=== PATIENT | female | born 1935 | race Caucasian/White ===

== ENCOUNTER 2025-02-01 10:09 | Observation (INO) ==
--- NOTE | 2025-02-01 10:24 | Emergency Department Note ---
HPI - General Adult General Chief complaint: General Complaint Stated complaint: AMS Time Seen by Provider: 02/01/25 10:12 Source: family and caregiver Mode of arrival: walk-in Limitations: no limitations History of Present Illness HPI narrative: This is a 89 year old female patient that presents to the ER from the long-term with c/o per son patient has been confused. Per son patient has intermittent confusion normally and hallucinations but its worse today. Per son patient has a hx of UTI's. Patient denies any chest pain, SOB, back pain, abdominal pain, cough or congestion Treatments prior to arrival: Reports none Related Data Home Medications Medication Instructions Recorded Confirmed atorvastatin 40 mg tablet mg 03/11/24 glipizide 5 mg tablet mg 03/11/24 levothyroxine 25 mcg tablet mcg 03/11/24 lisinopril 10 mg tablet mg 03/11/24 metformin 500 mg tablet mg 03/11/24 metoprolol tartrate 50 mg tablet mg 03/11/24 olanzapine 2.5 mg tablet mg 03/11/24 Allergies Allergy/AdvReac Type Severity Reaction Status Date / Time iodine Allergy Verified 02/01/25 10:28 Penicillins Allergy Verified 02/01/25 10:28 SEAFOOD Allergy Uncoded 02/01/25 10:28 Review of Systems Status of ROS 10 or more systems reviewed and unremark able except as noted in history and below Constitutional Denies: fever, chills, change in weight, fatigue, malaise or night sweats Eyes Denies: change in vision, blurry vision, blind spots, light sensitivity or eye discomfort Ears, nose, mouth, and throat Denies: throat pain, neck pain, throat swelling, difficulty swallowing, hoarseness or mouth pain Cardiovascular Denies: chest pain, palpitations, edema, swelling of feet/ankles, lightheadedness or shortness of breath with exertion Respiratory Denies: shortness of breath, cough, wheezing, stridor, pain on inspiration or change in phlegm color Gastrointestinal Denies: abdominal pain, nausea, vomiting, coffee grounds in vomit, heartburn, diarrhea or constipation Genitourinary Denies: painful urination, urinary frequency, urinary urgency, urinary incontinence, blood in urine or difficulty voiding Musculoskeletal Denies: back pain, neck pain, extremity pain, extremity swelling, joint pain or limited range of motion Integumentary/Breast Denies: rash, itching, redness, skin pain, skin tenderness, skin swelling or sores Neurological Reports: confusion; Denies: headache, numbness in extremities, weakness in extremities, lack of coordination, dizziness, behavioral changes, slurred speech, difficulty communicating thoughts, seizure-like activity or involuntary movements Psychiatric Denies: anxiety, mood swings, panic attacks, change in sleep pattern, hopelessness or loss of interest Endocrine Denies: excessive urination, excessive thirst, fatigue, cold intolerance or excessive sweating Hematologic/Lymphatic Denies: easy bruising, easy bleeding or enlarged lymph nodes Allergic/Immunologic Denies: hives, throat swelling, tongue swelling, facial swelling or wheezing [facility] Medical History Primary osteoarthritis, unspecified site Cognitive communication deficit Acute upper respiratory infection, unspecified Anxiety disorder, unspecified Atherosclerotic heart disease of [place] coronary artery without angina pectoris Social History Smoking status: never smoker Little interest or pleasure in doing things: not at all Feeling down, depressed, or hopeless: not at all Exam Constitutional: normal general appearance and no apparent distress Vital Signs - 24 hr 02/01/25 10:12 Temperature 97.2 F L Pulse Rate 67 Respiratory Rate 17 Blood Pressure 161/65 Pulse Oximetry 95 Oxygen Delivery Me thod Room Air HENMT: normocephalic, head/scalp atraumatic, hearing grossly normal bilaterally, external ears normal, EACs normal, nasal mucous membranes normal, external nose normal, oral mucous membranes normal and oropharynx normal Eyes: PERRL, EOMs intact bilaterally, conjunctivae normal and no scleral icterus Neck/C-Spine: visual inspection normal and trachea midline Lymph: no lymphadenopathy noted Chest: inspection of chest normal Respiratory: breath sounds equal bilaterally, normal respiratory effort, clear to auscultation bilaterally, no wheezes, no rales, no retractions, no use of accessory muscles and chest percussion normal Cardiovascular: normal heart rate noted, regular rhythm noted, no gallop, no rub, no murmur, no JVD, no clicks, peripheral pulses 2+ throughout, no bruits noted and no additional abnormal heart sounds Gastrointestinal: abdomen normal to inspection, abdomen soft to palpation, nontender to palpation, nontender to percussion, nondistended, normoactive bowel sounds, no hepatosplenomegaly, no masses, no pulsatile mass, no ascites and no hernia Genitourinary: no CVA tenderness Back/Pelvis: spine normal to inspection Extremities: normal to inspection, normal to palpation, no tenderness, full ROM, no joint enlargement and no deformity Neurology: strand and binder controller II-XII intact, no movement abnormality noted, no focal motor deficit noted, no sensory deficits noted, speech normal, coordination normal, no pronator drift noted, no fasciculations noted and GCS calculation - Eye opening: Spontaneous Verbal response: Confused Motor response: Obey commands [place] Coma Scale total score: 14 Psychiatry: mental status grossly normal, orientation abnormal (disoriented to place) and (disoriented to time), cooperative, affect normal and memory abnormal A&O to name, hx of dementia Skin: skin color normal Course Course Hospital Course: 1135: VSS, no s/s of acute distress noted, will admit patient to the medical floor for further evaluation and treatment Vital Signs Vital signs: Vital Signs Temperature 97.2 F L 02/01/25 10:12 Pulse Rate 67 02/01/25 10:12 Respiratory Rate 17 02/01/25 10:12 Blood Pressure 161/65 02/01/25 10:12 Pulse Oximetry 95 02/01/25 10:12 Oxygen Delivery Method Room Air 02/01/25 10:12 Temperature 97.2 F L 02/01/25 10:12 Pulse Rate 67 02/01/25 10:12 Respiratory Rate 17 02/01/25 10:12 Blood Pressure 161/65 02/01/25 10:12 Pulse Oximetry 95 02/01/25 10:12 Oxygen Delivery Method Room Air 02/01/25 10:12 Medical Decision Making Differential Diagnosis Differential Diagnosis: viral illness Medical Records Medical records reviewed: Yes I reviewed the patient's medical records Lab Data Lab results reviewed: Yes I reviewed the patient's lab results Labs: Lab Results 02/01/25 Range/Units 10:40 WBC 6.1 (4.3-9.3) K/uL RBC 4.3 (4.00-5.50) M/uL Hgb 12.1 L (12.5-15.8) gm/dL Hct 37.1 (35.9-46.7) % MCV 86.2 (81.0-93.7) fl MCH 28.0 (27.6-32.2) pg MCHC 32.5 L (33.1-35.3) g/dl RDW 15.5 H (11.4-14.2) % Plt Count 241 (152-353) K/uL MPV 9.7 (6.9-10.8) fl Gran % 70.8 (47.8-71.3) % Lymph % (Auto) 15.0 L (20.0-43.0) % Price % (Auto) 7.2 (3.6-9.8) % Eos % (Auto) 3.4 H (0.4-2.8) % Baso % (Auto) 3.6 H (0.1-0.85) Lymph # (Auto) 0.9 L (1.1-3.1) [place] # (Auto) 0.4 L (1.1-3.1) Eos # (Auto) 0.2 (0.0-0.2) Baso # (Auto) 0.2 H (0.0-0.1) Absolute Gran (auto) 4.3 (2.3-6.0) Sodium 132 L (136-145) mmol/L Potassium 4.3 (3.6-5.2) mmol/L Chloride 97.0 L (98-107) mmol/L Carbon Dioxide 32 (21-32) mmol/L Anion Gap 3.0 L (4-14) mEq/L BUN 30 H (7-18) mg/dL Creatinine 2.1 H (0.6-1.3) mg/dL Estimated GFR 22.1 (>59.9) Glucose 361 H (70-110) mg/dL Lactic Acid 1.0 (0.27-1.43) mmol/L Calcium 9.5 (8.5-10.1) mg/dL Total Bilirubin 0.38 (0.0-1.0) mg/dL AST 12 L (15-37) U/L ALT 12 L (30-65) U/L Alkaline Phosphatase 50 (50-136) U/L Troponin I High Sens 9.10 (4.0-60.4) ng/L Total Protein 6.9 (6.4-8.2) g/dL Albumin 2.8 L (3.4-5.0) g/dL Imaging Data CT scan - head: Attestation: I have reviewed the pertinent imaging results. ECG Data Attestation: I have reviewed the pertinent ECG results. Discharge Plan Discharge Patient Disposition: Admitted As Observation Condition: Stable Chief Complaint: General Complaint Clinical Impression: Acute UTI, Acute dehydration, AMS (altered mental status), Acute renal failure Prescriptions: No Action atorvastatin 40 mg tablet metformin 500 mg tablet olanzapine 2.5 mg tablet levothyroxine 25 mcg tablet lisinopril 10 mg tablet metoprolol tartrate 50 mg tablet glipizide 5 mg tablet Print Language: [place] Referrals: Cornelio Payton MD [Primary Care Provider] - Time of Disposition: 11:38
[2025-02-01 10:48] LABS: Basophils #(Absolute) Auto 0.2 (0.0-0.1); Basophils%(Percent) Auto 3.6 (0.1-0.85); Eosinophils#(Absolute)Auto 0.2 (0.0-0.2); Eosinophils%(Percent) Auto 3.4 % (0.4-2.8); Granulocytes % - Auto 70.8 % (47.8-71.3); Granulocytes#(Absolute)- Auto 4.3 (2.3-6.0); Hematocrit 37.1 % (35.9-46.7); Mean Corpuscular Volume 86.2 fl (81.0-93.7); Monocytes #(Absolute)- Auto 0.4 (1.1-3.1); Monocytes %(Percent)- Auto 7.2 % (3.6-9.8); Platelet Count 241 K/uL (152-353); White Blood Count 6.1 K/uL (4.3-9.3)
[2025-02-01 10:54] LABS: Potassium 4.3 mmol/L (3.6-5.2)
[2025-02-01] MEDS ORDERED: 0.9 % SODIUM CHLORIDE 1000 ML 1,000 ML IV ONE (11:18)
[2025-02-01] MEDS: 0.9 % SODIUM CHLORIDE 1000 ML 1,000 ML IV STA (11:23)
[2025-02-01] MEDS ORDERED: CEFTRIAXONE SODIUM 1 GM VIAL ONE (11:59)
[2025-02-01] MEDS ORDERED: 0.9 % SODIUM CHLORIDE MB+ 50 ML IV ONE (11:59)
[2025-02-01] MEDS: CEFTRIAXONE SODIUM 1 GM in 0.9 % SODIUM CHLORIDE MB+ 50 ML IV STA (12:01)
[2025-02-01] MEDS ORDERED: DOCUSATE SODIUM 100 MG CAPSULE PO PRN (12:23)
[2025-02-01] MEDS ORDERED: ACETAMINOPHEN 500 MG TABLET PO PRN (12:23)
[2025-02-01] MEDS ORDERED: MAGNESIUM, ALUMINUM HYDROXIDE 30 ML ORAL.SUSP PO PRN (12:23)
[2025-02-01 12:27] LABS: PH BODY FLUID EXCP BLOOD 6.5 (5 - 9); Urine Appearance CLEAR (CLEAR); Urine Blood NEGATIVE (NEG - TRACE); Urine Color YELLOW (STRAW/YELL.); Urine Urobilinogen Normal (NORMAL)
[2025-02-01] MEDS: 0.9 % SODIUM CHLORIDE 1000 ML 1,000 ML IV SCH (12:50)
--- NOTE | 2025-02-01 14:21 | History & Physical Report ---
H&P: HPI History of Present Illness Chief complaint: DEHYDRATION, ARF, AMS, UTI Narrative: This is a 89 year old female patient that presents to the ER from the long term with c/o per son patient has been confused more than normal worsening over the last week. Patient states his dad is also in long term and currently on hospice and he can no longer talk to her at the long term and they have been together for 72 years. Per son patient has intermittent confusion normally and hallucinations but its worse today. Per son patient has a hx of UTI's when this happens. Patient denies any chest pain, SOB, back pain, abdominal pain, cough or congestion. Not eating for the last 3-4 days Review of Systems Status of ROS 10 or more systems reviewed and unremark able except as noted in history and below Constitutional Reports: change in weight and change in sleep pattern; Denies: fever, chills, fatigue, malaise, night sweats or other (not eating) Eyes Denies: change in vision, blurry vision, blind spots, light sensitivity or eye discomfort Ears, nose, mouth, and throat Denies: throat pain, neck pain, throat swelling, difficulty swallowing, hoarseness or mouth pain Cardiovascular Denies: chest pain, palpitations, edema, swelling of feet/ankles, lightheadedness or shortness of breath with exertion Respiratory Denies: shortness of breath, cough, wheezing, stridor, pain on inspiration or change in phlegm color Gastrointestinal Denies: abdominal pain, nausea, vomiting, coffee grounds in vomit, heartburn, diarrhea, constipation, bloating, belching, excessive passing of gas or difficulty swallowing Genitourinary Denies: painful urination, urinary frequency, urinary urgency, urinary incontinence, blood in urine or difficulty voiding Musculoskeletal Denies: back pain, neck pain, extremity pain, extremity swelling, joint pain or limited range of motion Integumentary/Breast Denies: rash, itching, redness, skin pain, skin tenderness, skin swelling or sores Neurological Reports: confusion; Denies: headache, numbness in extremities, weakness in extremities, lack of coordination, dizziness, behavioral changes, slurred speech, difficulty communicating thoughts, seizure-like activity or involuntary movements Psychiatric Denies: anxiety, mood swings, panic attacks, change in sleep pattern, hopelessness or loss of interest Endocrine Denies: excessive urination, excessive thirst, fatigue, cold intolerance or excessive sweating Hematologic/Lymphatic Denies: easy bruising, easy bleeding or enlarged lymph nodes Allergic/Immunologic Denies: hives, throat swelling, tongue swelling, facial swelling or wheezing PFSH PFS Medical History Primary osteoarthritis, unspecified site Cognitive communication deficit Acute upper respiratory infection, unspecified Anxiety disorder, unspecified Atherosclerotic heart disease of [place] coronary artery without angina pectoris Social History Smoking status: never smoker Problems where you live: no known problems Highest level of school completed/degree received: decline to answer Little interest or pleasure in doing things: not at all Feeling down, depressed, or hopeless: not at all Meds Home Medications and Allergies Home Medications Medication Instructions Recorded Confirmed Type atorvastatin 40 mg tablet mg 03/11/24 History glipizide 5 mg tablet mg 03/11/24 History levothyroxine 25 mcg tablet mcg 03/11/24 History lisinopril 10 mg tablet mg 03/11/24 History metformin 500 mg tablet mg 03/11/24 History metoprolol tartrate 50 mg tablet mg 03/11/24 History olanzapine 2.5 mg tablet mg 03/11/24 History Allergies Allergy/AdvReac Type Severity Reaction Status Date / Time iodine Allergy Verified 02/01/25 10:28 Penicillins Allergy Verified 02/01/25 10:28 SEAFOOD Allergy Uncoded 02/01/25 10:28 Exam Constitutional: abnormal general appearance (disheveled), (chronically ill) and (frail appearing), no apparent distress, average body habitus, limitations noted (altered mental status) and (physical limitations) and alert Vital Signs - 24 hr 02/01/25 10:12 02/01/25 11:20 02/01/25 11:21 Temperature 97.2 F L Pulse Rate 67 79 68 Respiratory Rate 17 17 Blood Pressure 161/65 178/76 145/59 Pulse Oximetry 95 96 93 L Oxygen Delivery Me thod Room Air Room Air Room Air 02/01/25 11:30 02/01/25 12:41 02/01/25 12:44 Temperature Pulse Rate 70 70 Respiratory Rate 16 Blood Pressure 151/56 151/56 Pulse Oximetry 96 96 Oxygen Delivery Me thod Room Air HENMT: normocephalic, head/scalp atraumatic, hearing grossly abnormal, external ears normal, EACs normal, TMs normal bilaterally, nasal mucous membranes normal, external nose normal, oral mucous membranes abnormal, oropharynx normal, dentition abnormal and gingiva normal Eyes: PERRL, EOMs intact bilaterally, conjunctivae normal, no scleral icterus, papilledema noted and periorbital findings normal Neck/C-Spine: abnormal to visual inspection, trachea midline, cervical spine nontender, abnormal cervical ROM noted, supple, no meningeal signs, thyroid normal and no carotid bruits Lymph: no lymphadenopathy noted and no lymphedema noted Chest: inspection of chest normal and palpation of chest normal Respiratory: breath sounds equal bilaterally, normal respiratory effort, clear to auscultation bilaterally, no wheezes, no rales, no retractions, no use of accessory muscles and chest percussion normal Cardiovascular: normal heart rate noted, regular rhythm noted, no gallop, no rub, no murmur, no JVD, no clicks, peripheral pulses 2+ throughout, no bruits noted and no additional abnormal heart sounds Gastrointestinal: abdomen normal to inspection, abdomen soft to palpation, nontender to palpation, nontender to percussion, nondistended, normoactive bowel sounds, no hepatosplenomegaly, no masses, no pulsatile mass, no ascites and no hernia Genitourinary: no CVA tenderness, bladder normal to palpation and external appearance normal Back/Pelvis: spine abnormal to inspection, no thoracic spine tenderness, no lumbar spine tenderness, thoracic spine ROM abnormal and lumbar spine ROM abnorm al Extremities: normal to inspection, normal to palpation, no tenderness, full ROM, no joint enlargement and no deformity Neurology: bootmaker II-XII intact, no movement abnormality noted, no focal motor deficit noted, no sensory deficits noted, deep tendon reflexes as noted:, gait abnormality noted, speech normal, coordination normal, no pronator drift noted, no fasciculations noted and GCS calculation - Eye opening: Spontaneous Verbal response: Confused Motor response: Obey commands [place] Coma Scale total score: 14 Psychiatry: mental status grossly normal, orientation abnormal (disoriented to place) and (disoriented to time), thought process abnormality noted, cooperative, affect abnormality noted, psychomotor abnormality noted (agitated) and memory abnormal A&O to name, hx of dementia Feel stressed/tense/nervous/anxious/difficulty sleeping: decline to answer Skin: skin color abnormal Reports (pale), no rash, no lesions, ecchymosis noted, no wounds, no lacerations, skin turgor abnormal, no jaundice, no petechi ae, no mottling, nails abnormality noted and no alopecia Assessment and Plan Assessment and Plan (1) Acute dehydration: Code(s): E86.0 - Dehydration (2) Hyponatremia: Code(s): E87.1 - Hypo-osmolality and hyponatremia (3) Acute renal injury: Code(s): N17.9 - Acute kidney failure, unspecified (4) Hypoalbuminemia: Code(s): E88.09 - Other disorders of plasma-protein metabolism, not elsewhere classified Plan 0.9% normal saline at 125 an hour Resume long term medications Cardiac monitoring Continuous pulse ox Neurochecks every 4 hours and as needed Turn patient every 2 hours as tolerated Tylenol as needed for pain Milk of mag and docusate 100 mg as needed for constipation Patient given 1 dose of Rocephin in the ER but will hold at this time secondary to normal white count and no evidence of UTI Results Labs Labs: CBC 02/01/25 Range/Units 10:40 WBC 6.1 (4.3-9.3) K/uL RBC 4.3 (4.00-5.50) M/uL Hgb 12.1 L (12.5-15.8) gm/dL Hct 37.1 (35.9-46.7) % Plt Count 241 (152-353) K/uL Gran % 70.8 (47.8-71.3) % Lymph % (Auto) 15.0 L (20.0-43.0) % [place] % (Auto) 7.2 (3.6-9.8) % Eos % (Auto) 3.4 H (0.4-2.8) % Baso % (Auto) 3.6 H (0.1-0.85) Lymph # (Auto) 0.9 L (1.1-3.1) [place] # (Auto) 0.4 L (1.1-3.1) Eos # (Auto) 0.2 (0.0-0.2) Baso # (Auto) 0.2 H (0.0-0.1) Absolute Gran (auto) 4.3 (2.3-6.0) CMP 02/01/25 10:40 Sodium 132 L Potassium 4.3 Chloride 97.0 L Carbon Dioxide 32 BUN 30 H Creatinine 2.1 H Glucose 361 H Calcium 9.5 Liver Function 02/01/25 Range/Units 10:40 Total Bilirubin 0.38 (0.0-1.0) mg/dL AST 12 L (15-37) U/L ALT 12 L (30-65) U/L Alkaline Phosphatase 50 (50-136) U/L Albumin 2.8 L (3.4-5.0) g/dL Urine 02/01/25 10:23 Urine Color Yellow Urine Appearance Clear Ur Specific [place] 1.010 Urine Protein Negative Urine Glucose (UA) 3+ Pulse Oximetry Attestation: I have reviewed the pertinent pulse oximetry results. ECG Attestation: I have reviewed the pertinent ECG results. Prior ECG tracings: available for review Imaging Imaging ordered: Chest x-ray and CT scan - head Radiologist's impression: Chest pain; COMPARISON: None. TECHNIQUE: Frontal view of the chest was submitted for interpretation. FINDINGS: The cardiomediastinal silhouette is within normal limits. Lungs show no focal consolidation, pneumothorax, or pleural fluid. Large hiatal hernia. IMPRESSION: No acute cardiopulmonary process. AMSAMS; COMPARISON: None available. TECHNIQUE: Multiple axial images of the brain were obtained from the skull base to the vertex without administration of IV contrast. Dose reduction techniques including Automated Exposure Control (AEC) and adjustment of mA and kV were utilized. FINDINGS: No acute intraparenchymal hemorrhage or mass can be identified. No extra-axial fluid collections are seen. No alteration in the attenuation of the brain parenchyma can be identified to suggest acute or subacute ischemic change. Mild small-vessel ischemic changes and age-appropriate atrophy are noted. The ventricular system is symmetric and nondilated. The extracranial structures appear unremarkable. IMPRESSION: 1. No acute intracranial process can be identified.
[2025-02-02 05:53] LABS: Basophils #(Absolute) Auto 0.1 (0.0-0.1); Basophils%(Percent) Auto 1.2 (0.1-0.85); Eosinophils#(Absolute)Auto 0.3 (0.0-0.2); Eosinophils%(Percent) Auto 4.1 % (0.4-2.8); Granulocytes % - Auto 65.4 % (47.8-71.3); Hematocrit 37.5 % (35.9-46.7); Mean Corpuscular Volume 85.9 fl (81.0-93.7); Monocytes #(Absolute)- Auto 0.6 (1.1-3.1); Monocytes %(Percent)- Auto 7.6 % (3.6-9.8); Platelet Count 211 K/uL (152-353); White Blood Count 7.7 K/uL (4.3-9.3)
[2025-02-02 06:49] LABS: Potassium 3.7 mmol/L (3.6-5.2)
[2025-02-02] MEDS: IPRATROPIUM/ALBUTEROL SULFATE 3 ML AMPUL.NEB INH ONE (07:24)
[2025-02-02 07:33] VITALS: BP 122/66; PULSE 102; RESP 20; TEMP 97.8
--- NOTE | 2025-02-02 10:29 | Discharge Summary ---
DS: Providers Provider Date of admission: 02/01/25 11:41 Primary care physician: Cornelio Payton MD Admitting clinician: Haley Lucio Attending physician on admission: Saige Encinas Consults: 02/02/25 09:39 Consult to Psychiatry Routine Comment: Consulting Provider: Saige Encinas Physician Instructions: Reason for consultation: IOP consult depression, grieving, dementia Attending physician on discharge: Saige Encinas Discharging clinician: Saige Encinas Anticipated date of discharge: 02/02/25 DS: Diagnosis Discharge Diagnosis (1) Depression due to dementia: (2) Anorexia: (3) Acute renal injury: (4) Acute dehydration: (5) Hyponatremia: (6) Hypoalbuminemia: (7) Essential (primary) hypertension: (8) Vascular dementia, unspecified severity, with other behavioral disturbance: (9) Type 2 diabetes mellitus without complications: Qualifiers: Diabetes mellitus watermaster insulin use: with fci use Qualified Code(s): E11.9 - Type 2 diabetes mellitus without complications; Z79.4 - superintendent terminal (current) use of insulin (10) Hypothyroidism, unspecified: Qualifiers: Hypothyroidism type: acquired Qualified Code(s): E03.9 - Hypothyroidism, unspecified (11) Osteoarthritis: Qualifiers: Osteoarthritis location: multiple joints Osteoarthritis type: other secondary Qualified Code(s): 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 transplanted heart: unspecified whether [place] or transplanted heart Qualified Code(s): I25.10 - Atherosclerotic heart disease of [place] coronary artery without angina pectoris (13) Sinus tachycardia: (14) Complicated grief: DS: Summary Hospital Course Hospital Course: 1135: VSS, no s/s of acute distress noted, will admit patient to the medical floor for further evaluation and treatment Patient remains hard of hearing throughout hospital stay which is chronic for the patient as well as unable to answer questions therefore confused with any speech could not get words out on admission. On day of discharge patient is able to answer 1-2 word questions sometimes not appropriate but does repeat my name today and attempt understand how IM although Ruben recommendation yesterday on day of admission. Patient did not eat out yesterday tolerated the normal saline and did consume breakfast this morning 25% and then off radiation afterwards which she drank about half. Status at Discharge Functional status at discharge: wheelchair bound Overall status at discharge: patient is progressing back to baseline Time Spent with Patient Time attestation: Total time spent providing and/or coordinating discharge services: 47 Time spent: greater than 30 minutes Exam Constitutional: abnormal general appearance (disheveled), (chronically ill) and (frail appearing), no apparent distress, average body habitus, limitations noted (altered mental status) and (physical limitations) and alert Vital Signs - 24 hr 02/01/25 11:20 02/01/25 11:21 02/01/25 11:30 Temperature Pulse Rate 79 68 70 Pulse Rate [Left] Respiratory Rate 17 Blood Pressure 178/76 145/59 151/56 Blood Pressure [Le ft Arm] Pulse Oximetry 96 93 L 96 [facility] Room Air Room Air 02/01/25 12:41 02/01/25 12:44 02/01/25 14:21 Temperature Pulse Rate 70 Pulse Rate [Left] Respiratory Rate 16 Blood Pressure 151/56 Blood Pressure [Le ft Arm] Pulse Oximetry 96 97 Oxygen Delivery Ca thod 02/01/25 16:00 02/01/25 19:31 02/01/25 23:50 Temperature 97.5 F L 97.9 F Pulse Rate Pulse Rate [Left] 103 H 84 81 Respiratory Rate 16 16 15 Blood Pressure Blood Pressure [Le ft Arm] 157/80 143/62 146/62 Pulse Oximetry 93 L 96 98 [facility] Room Air Room Air 02/02/25 03:10 02/02/25 07:32 Temperature 97.5 F L 97.8 F Pulse Rate Pulse Rate [Left] 89 102 H Respiratory Rate 17 20 Blood Pressure Blood Pressure [Le ft Arm] 134/67 122/66 Pulse Oximetry 96 95 [facility] Room Air HENMT: normocephalic, head/scalp atraumatic, hearing grossly abnormal, external ears normal, EACs normal, TMs normal bilaterally, nasal mucous membranes normal, external nose normal, oral mucous membranes abnormal, or opharynx normal, dentition abnormal and gingiva normal Eyes: PERRL, EOMs intact bilaterally, conjunctivae normal, no scleral icterus, papilledema noted and periorbital findings normal Neck/C-Spine: abnormal to visual inspection, trachea midline, cervical spine nontender, abnormal cervical ROM noted, supple, no meningeal signs, thyroid nor mal and no carotid bruits Lymph: no lymphadenopathy noted and no lymphedema noted Chest: inspection of chest normal and palpation of chest normal Respiratory: breath sounds equal bilaterally, normal respiratory effort, clear to auscultation bilaterally, no wheezes, no rales, no retractions, no use of accessory muscles and chest percussion normal Cardiovascular: normal heart rate noted, regular rhythm noted, no gallop, no rub, no murmur, no JVD, no clicks, peripheral pulses 2+ throughout, no bruits noted and no additional abnormal heart sounds Gastrointestinal: abdomen normal to inspection, abdomen soft to palpation, nontender to palpation, nontender to percussion, nondistended, normoactive bowel sounds, no hepatosplenomegaly, no masses, no pulsatile mass, no ascites and no hernia Genitourinary: no CVA tenderness, bladder normal to palpation and external appearance normal Back/Pelvis: spine abnormal to inspection, no thoracic spine tenderness, no lumbar spine tenderness, thoracic spine ROM abnormal and lumbar spine ROM abnormal Extremities: normal to inspection, normal to palpation, no tenderness, full ROM, no joint enlargement and no deformity Neurology: business systems developer II-XII intact, no movement abnormality noted, no focal motor deficit noted, no sensory deficits noted, deep tendon reflexes as noted:, gait abnormality noted, speech normal, coordination normal, no pronator drift noted, no fasciculations noted and GCS calculation - Eye opening: Spontaneous Verbal response: Confused Motor response: Obey commands Ashley Coma Scale total score: 14 Psychiatry: mental status grossly normal, orientation abnormal (disoriented to place) and (disoriented to time), thought process abnormality noted, cooperative, affect abnormality noted, psychomotor abnormality noted (agitated) and memory abnormal A&O to name, hx of dementia Feel stressed/tense/nervous/anxious/difficulty sleeping: decline to answer Skin: skin color abnormal Reports (pale) (although improved today), no rash, no lesions, ecchymosis noted, no wounds, no lacerations, skin turgor normal, no jaundice, no petechiae, no mottling, nails abnormality noted and no alopecia DS: Data Data Completed and Pending Labs on day of discharge: Labs from last 24 hours 0402/01/25 02/01/25 05:30 10:40 10:23 WBC 7.7 6.1 RBC 4.4 4.3 Hgb 12.1 L 12.1 L Hct 37.5 37.1 MCV 85.9 86.2 MCH 27.7 28.0 MCHC 32.3 L 32.5 L RDW 15.6 H 15.5 H Plt Count 211 241 MPV 10.0 9.7 Gran % 65.4 70.8 Lymph % (Auto) 21.7 15.0 L [place] % (Auto) 7.6 7.2 Eos % (Auto) 4.1 H 3.4 H Baso % (Auto) 1.2 H 3.6 H Lymph # (Auto) 1.7 0.9 L [place] # (Auto) 0.6 L 0.4 L Eos # (Auto) 0.3 H 0.2 Baso # (Auto) 0.1 0.2 H Absolute Gran (auto) 5.0 4.3 Sodium 140 132 L Potassium 3.7 4.3 Chloride 105.0 97.0 L Carbon Dioxide 27 32 Anion Gap 8.0 3.0 L BUN 18 30 H Creatinine 1.6 H 2.1 H Estimated GFR 30.6 22.1 Glucose 218 H 361 H Lactic Acid 1.0 Calcium 8.7 9.5 Total Bilirubin 0.38 AST 12 L ALT 12 L Alkaline Phosphatase 50 Troponin I High Sens 9.10 Total Protein 6.9 Albumin 2.8 L Urine Color Yellow Urine Appearance Clear Ur Specific [place] 1.010 Urine Protein Negative Urine Glucose (UA) 3+ Urine Ketones Negative Urine Occult Blood Negative Urine Nitrite Negative Urine Bilirubin Negative Urine Urobilinogen Normal Ur Leukocyte Esterase Negative Fluid pH 6.5 Discharge Plan Discharge Disposition: Xfer [facility] Condition: Improved Anticipated Discharge Date/Time: 02/02/25 10:25 Discharge Medications: No Action atorvastatin 40 mg tablet metformin 500 mg tablet olanzapine 2.5 mg tablet levothyroxine 25 mcg tablet lisinopril 10 mg tablet metoprolol tartrate 50 mg tablet glipizide 5 mg tablet Discharge Orders: Discharge Order (Routine); Ordered 02/02/25 Ordered By: Saige Encinas Activity: increase activity as tolerated Diet: advance to your usual diet Diet Detail: Encourage oral intake and if does not if it presented with meal offer Ensure Hospital Course: 1135: VSS, no s/s of acute distress noted, will admit patient to the medical floor for further evaluation and treatment Patient remains hard of hearing throughout hospital stay which is chronic for the patient as well as unable to answer questions therefore confused with any speech could not get words out on admission. On day of discharge patient is able to answer 1-2 word questions sometimes not appropriate but does repeat my name today and attempt understand how IM although Ruben recommendation yesterday on day of admission. Patient did not eat out yesterday tolerated the normal saline and did consume breakfast this morning 25% and then off radiation afterwards which she drank about half. Plan of Treatment: Encourage oral intake of water and eating meals will offer Ensure in between meals and she does not complete 25% of her meals and offer Ensure at that time. Consult IOP for further counseling and coping mechanisms as well as medication is warranted Print Language: Nam[place] Forms: Portal/Health Info Access Inst Follow-Ups: Cornelio Payton MD [Primary Care Provider] -
== END 2025-02-02 11:16 ==
LOC: ED 10:09 → MS 10:09
PROVIDERS: ADMIT Family Medicine; ATTEND Family Medicine
DX: E87.1 Hypo-osmolality and hyponatremia; E88.09 Other disorders of plasma-protein metabolism, not elsewhere classified; E11.9 Type 2 diabetes mellitus without complications; Z88.0 Allergy status to penicillin; Z79.899 Other long term (current) drug therapy; I10 Essential (primary) hypertension; F32.A Depression, unspecified; F01.54 Vascular dementia, unspecified severity, with anxiety; E03.9 Hypothyroidism, unspecified; R00.0 Tachycardia, unspecified; Z88.8 Allergy status to other drugs, medicaments and biological substances; F43.81 Prolonged grief disorder; Z87.440 Personal history of urinary (tract) infections; Z68.23 Body mass index [BMI] 23.0-23.9, adult; E86.0 Dehydration; Z79.890 Hormone replacement therapy; Z79.84 Long term (current) use of oral hypoglycemic drugs; R63.0 Anorexia; K44.9 Diaphragmatic hernia without obstruction or gangrene; N17.9 Acute kidney failure, unspecified; Z79.4 Long term (current) use of insulin; M15.3 Secondary multiple arthritis; I25.10 Atherosclerotic heart disease of native coronary artery without angina pectoris; F01.53 Vascular dementia, unspecified severity, with mood disturbance; F41.9 Anxiety disorder, unspecified